=== PATIENT | male | born 1980 | race Caucasian/White ===

== ENCOUNTER 2016-08-30 12:55 | Emergency (ER) | payer SELFPAY ==
[~2016-08-30] VITALS: Ht 172.7 cm; Wt 85.0 kg
[2016-08-30 13:00] VITALS: Ht 172.7 cm; Wt 85.0 kg
[2016-08-30] MEDS ORDERED: SODIUM CHLORIDE 0.9% 1L BAG IV* STA (13:03)
[2016-08-30] MEDS ORDERED: ACETAMINOPHEN 325 MG TAB PO ONE (13:30)
[2016-08-30 13:35] LABS: ADD SCAN DIFF NO
[2016-08-30 13:45] LABS: BASOPHIL # 0.1 10^3/ul (0.0-0.1); BASOPHILS % 0.3 % (0.0-2.0); EOSINOPHILS % 0.2 % (0.0-7.0); HEMATOCRIT 44.4 % (42.0-52.0); HEMOGLOBIN 14.1 g/dl (14.0-18.0); LYMPHOCYTES # 1.4 10^3/ul (0.8-2.9); LYMPHOCYTES % 7.9 % (15.0-51.0); MEAN CORPUSCULAR HEMOGLOBIN 28.7 pg (29.0-33.0); MEAN CORPUSCULAR HGB CONC 31.8 g/dl (32.0-37.0); MEAN CORPUSCULAR VOLUME 90.4 fl (82.0-101.0); MEAN PLATELET VOLUME 10.6 fl (7.4-10.4); MONOCYTE # 1.1 10^3/ul (0.3-0.9); MONOCYTES % 6.1 % (0.0-11.0); NEUTROPHIL # 14.8 10^3/ul (1.6-7.5); NEUTROPHILS % 85.1 % (39.0-77.0); PLATELET COUNT 214 10^3/UL (140-415); RED BLOOD COUNT 4.91 10^6/ul (4.70-6.10); RED CELL DISTRIBUTION WIDTH 13.6 % (11.5-14.5); WHITE BLOOD COUNT 17.4 10^3/ul (4.8-10.8)
[2016-08-30 13:55] LABS: ALBUMIN 4.8 g/dl (3.3-4.9); CHLORIDE 103 mmol/L (97-110); SODIUM 137 mmol/L (135-144)
[2016-08-30 13:56] LABS: POTASSIUM 3.9 mmol/L (3.5-5.1)
[2016-08-30] MEDS ORDERED: VENL75TA2 PO (13:56)
[2016-08-30] MEDS ORDERED: BUPR1FIL3 SL (13:56)
[2016-08-30 13:57] LABS: CREATININE 0.89 mg/dl (0.61-1.24)
[2016-08-30] MEDS ORDERED: DIAZ10TA4 PO (13:57)
--- NOTE | 2016-08-30 13:57 | RADRPT ---
PROCEDURE: XR Chest. CLINICAL INDICATION: Sepsis TECHNIQUE: Chest AP portable. COMPARISON: No comparison available. FINDINGS: The mediastinal structures are unremarkable. The heart is normal in size and configuration. The pu lmonary vascularity is normal. The lung bernstein are unremarkable. No consolidation is identified. The pleural spaces are unremarkable. The axial skeleton is unremarkable. IMPRESSION: No active intrathoracic disease. RPTAT: [facility] .Temo Avila MD, MD Date Time Electronically viewed and signed by .Temo Avila MD, on 08/30/2016 13:57 .B/
[2016-08-30 13:58] LABS: ALANINE AMINOTRANSFERASE 37 IU/L (13-69); ALBUMIN/GLOBULIN RATIO 1.92; ALKALINE PHOSPHATASE 76 IU/L (42-121); ANION GAP 12 (8-16); ASPARTATE AMINO TRANSFERASE 34 IU/L (15-46); BILIRUBIN,INDIRECT 0.2 mg/dl (0-1.1); BILIRUBIN,TOTAL 0.2 mg/dl (0.2-1.3); BLOOD UREA NITROGEN 13 mg/dl (7-20); CALCIUM 8.6 mg/dl (8.4-10.2); CARBON DIOXIDE 26 mmol/L (21-31); GLUCOSE 178 mg/dl (70-220); TOTAL PROTEIN 7.3 g/dl (6.1-8.1)
[2016-08-30] MEDS ORDERED: OLAN10TA7 PO (13:58)
[2016-08-30 13:59] LABS: ACETAMINOPHEN < 10.0 ug/ml (10.0-30.0); ETHANOL < 10.0 mg/dl; SALICYLATE < 1.0 mg/dl (5.0-30.0)
[2016-08-30] MEDS ORDERED: CLON-379 PO (14:02)
[2016-08-30] MEDS ORDERED: GABA300C16 PO (14:03)
[2016-08-30] MEDS ORDERED: BUSP10TA2 PO (14:03)
[2016-08-30] MEDS ORDERED: CLIN-73 PO (14:04)
[2016-08-30 14:12] LABS: TROPONIN-I < 0.012 ng/ml (0.00-0.12)
--- NOTE | 2016-08-30 14:32 | ERD ---
ER Documentation Chief Complaint Date/Time DATE: 08/30/16 TIME: 14:30 Chief Complaint suspected heroine OD in a car parking lot hx of heroine use HPI Patient is a 35-year-old male with history of heroin abuse who presents with a heroin overdose. He was brought in by ambulance. He was given Narcan 2 mg IM by paramedics because he was not breathing. He was hypoxic and cyanotic. His girlfriend called 911 when she found him unconscious in the car. He said that he used heroin about 1 hour ago. His only complaint is that he "feels cold". He also had a sore throat which started yesterday. Upon review of old medical records this is the patient's first visit to the emergency department. ROS All systems reviewed and are negative except as per history of present illness. Medications Home Meds Active Scripts Clindamycin Hcl* (Clindamycin Hcl*) 300 Mg Capsule, 300 MG PO TID for 10 Days, CAP Prov:MARYCHUY WAHL MD 08/30/16 Reported Medications Buspirone Hcl* (Buspirone Hcl*) 10 Mg Tab, 15 MG PO BID, TAB 08/30/16 Gabapentin* (Gabapentin*) 300 Mg Capsule, 900 MG PO TID, #90 CAP 08/30/16 Clonidine Hcl* (Clonidine Hcl*) 0.1 Mg Tab, 0.1 MG PO TID Y for ELEVATED BLOOD PRESSURE, TAB 08/30/16 Olanzapine* (Zyprexa*) 10 Mg Tablet, 10 MG PO DAILY, #30 TAB 08/30/16 Diazepam* (Diazepam*) 10 Mg Tablet, 10 MG PO BID, TAB 08/30/16 Venlafaxine Hcl* (Effexor XR*) 75 Mg Tab.er.24, 75 MG PO DAILY, TAB.SA 08/30/16 Buprenorphine Hcl-Naloxone Hcl (Suboxone SL) 8-2 Mg Film, 1 FILM SL DAILY, FILM 08/30/16 Allergies Allergies: Uncoded Allergies: PENICILLIN (Allergy, Unknown, 08/30/16) PMhx/Soc Medical and Surgical Hx: pt denies Medical Hx, pt denies Surgical Hx History of Surgery: No Anesthesia Reaction: No Hx Neurological Disorder: No Hx Respiratory Disorders: No Hx Cardiac Disorders: No Hx Psychiatric Problems: No Hx Miscellaneous Medical Probl: No Hx Alcohol Use: No Hx Substance Use: Yes (HEROIN) Hx Tobacco Use: Yes Smoking Status: Current some day smoker FmHx Family History: No diabetes Physical Exam Vitals Vital Signs Date Time Temp Pulse Resp B/P Pulse Ox O2 Delivery O2 Flow Rate FiO2 08/30/16 13:00 100.7 124 20 187/103 96 Physical Exam Const: Moderate distress Head: Atraumatic Eyes: Normal Conjunctiva ENT: Erythematous tonsils bilaterally without signs of peritonsillar abscess or stridor over the neck Neck: Full range of motion..~ No meningismus. Resp: Clear to auscultation bilaterally Cardio: Tachycardic rate Abd: Soft, non tender, non distended. Normal bowel sounds Skin: No petechiae or rashes Back: No midline or flank tenderness Ext: No cyanosis, or edema Neur: Awake and alert Psych: Normal Mood and Affect Result Diagram: 08/30/16 1320 08/30/16 1320 Results 24 hrs Laboratory Tests Test 08/30/16 13:20 White Blood Count 17.410^3/ul Red Blood Count 4.9110^6/ul Hemoglobin 14.1g/dl Hematocrit 44.4% Mean Corpuscular Volume 90.4fl Mean Corpuscular Hemoglobin 28.7pg Mean Corpuscular Hemoglobin Concent 31.8g/dl Red Cell Distribution Width 13.6% Platelet Count 14463^3/UL Mean Platelet Volume 10.6fl Neutrophils % 85.1% Lymphocytes % 7.9% Monocytes % 6.1% Eosinophils % 0.2% Basophils % 0.3% Nucleated Red Blood Cells % 0.0/100WBC Neutrophils # 14.810^3/ul Lymphocytes # 1.410^3/ul Monocytes # 1.110^3/ul Eosinophils # 0.010^3/ul Basophils # 0.110^3/ul Nucleated Red Blood Cells # 0.010^3/ul Sodium Level 137mmol/L Potassium Level 3.9mmol/L Chloride Level 103mmol/L Carbon Dioxide Level 26mmol/L Anion Gap 12 Blood Urea Nitrogen 13mg/dl Creatinine 0.89mg/dl Glucose Level 178mg/dl Lactic Acid Level 3.0mmol/L Calcium Level 8.6mg/dl Total Bilirubin 0.2mg/dl Direct Bilirubin 0.00mg/dl Indirect Bilirubin 0.2mg/dl Aspartate Amino Transf (AST/SGOT) 34IU/L Alanine Aminotransferase (ALT/SGPT) 37IU/L Alkaline Phosphatase 76IU/L Troponin I < 0.012ng/ml Total Protein 7.3g/dl Albumin 4.8g/dl Globulin 2.50g/dl Albumin/Globulin Ratio 1.92 Salicylates Level < 1.0mg/dl Acetaminophen Level < 10.0ug/ml Ethyl Alcohol Level < 10.0mg/dl Current Medications Medications (Trade) Dose Ordered Sig/Elmer Route PRN Reason Start Time Stop Time Status Last Admin Dose Admin Sodium Chloride (NS) 2,640 ml BOLUS OVER 2 HOURS STAT IV* 08/30/16 13:03 08/30/16 13:04 DC 08/30/16 13:44 Acetaminophen (Tylenol Tab) 650 mg ONCE ONCE PO 08/30/16 13:30 08/30/16 13:31 DC 08/30/16 13:15 Procedures/MDM Chest x-ray negative for pneumonia or pneumothorax per radiology. Admit MDM: Patient's infectious symptoms have not stabilized and the patient is at risk of rapid decompensation. The patient will be admitted for careful hydration, antibiotic therapy, and infectious source control. Severe Sepsis criteria: Infectious source: Pharyngitis End organ damage indicated by: Lactate greater than 2 Sepsis Management: Time of recognition of sepsis: 13:20 Within 3 hours of recognition: Blood cultures x 2 before broad-spectrum antibiotics: Yes 30 ml/kg NS bolus Completed Initial lactate 3.0 Repeat lactate patient refused Time of recognition of septic shock: No septic shock Septic Shock Assessment: Any lactic acid > 4.0 No Persistent hypotension (SBP < 90 or 40 mmHg drop, MAP < 65) despite 30 mL/kg IV fluid bolus No Volume Re-assessment for Septic Shock (post 30 ml/kg bolus): No septic shock at this time Persistent Hypotension Treatment: Comfort care No Central line Not Required Vasopressor started Not required I considered further perfusion assessment with CVP measurement, SCVO2, bedside ultrasound volume assessment, passive leg raise, trial of further fluid bolus. And proceeded with 30 mm kilogram fluid bolus of normal saline and Tylenol. The patient refused antibiotics and repeat lactic acid. I also wanted to admit him to the hospital but he refused and pulled out his own IV and wants to leave AGAINST MEDICAL ADVICE. The patient was instructed to take clindamycin as he has an allergy to penicillin and I believe he has a pharyngitis. The patient could return for any worsening symptoms but please note that he is leaving AGAINST MEDICAL ADVICE. Critical Care: Critical care time 35 minutes excluding all billable procedures Emergent fluid management while maintaining close respiratory support. Provision of immediate and broad-spectrum antibiotic therapy. Simultaneous assessment for possible sources in order to direct targeted therapy. Consideration for invasive and chemical support to prevent cardiopulmonary collapse. Departure Diagnosis: Primary Impression: Sepsis Sepsis type: sepsis due to unspecified organism Qualified Code: A41.9 - Sepsis, due to unspecified organism Additional Impressions: Fever Fever type: unspecified Qualified Code: R50.9 - Fever, unspecified fever cause Accidental overdose Encounter type: initial encounter Qualified Code: T50.901A - Accidental overdose, initial encounter Pharyngitis Pharyngitis/tonsillitis etiology: unspecified etiology Qualified Code: J02.9 - Pharyngitis, unspecified etiology Condition: Fair Patient Instructions: Overdose, Accidental (Adult), Pharyngitis, Strep ( Presumed) Referrals: [facility] YOU HAVE RECEIVED A MEDICAL SCREENING EXAM AND THE RESULTS INDICATE THAT YOU DO NOT HAVE A CONDITION THAT REQUIRES URGENT TREATMENT IN THE EMERGENCY DEPARTMENT. FURTHER EVALUATION AND TREATMENT OF YOUR CONDITION CAN WAIT UNTIL YOU ARE SEEN IN YOUR DOCTORS OFFICE WITHIN THE NEXT 1-2 DAYS. IT IS YOUR RESPONSIBILITY TO MAKE AN APPOINTMENT FOR FOLOW-UP CARE. IF YOU HAVE A PRIMARY DOCTOR --you should call your primary doctor and schedule an appointment IF YOU DO NOT HAVE A PRIMARY DOCTOR YOU CAN CALL OUR PHYSICIAN REFERRAL HOTLINE AT IF YOU CAN NOT AFFORD TO SEE A PHYSICIAN YOU CAN CHOSE FROM THE FOLLOWING [facility] CL[facility]ICS [facility] [address] [facility]. [facility] [address] [facility] [address] [facility] [address] [facility]. [facility] [address] [facility] [facility]. [address] Additional Instructions: Call your primary care doctor TOMORROW for an appointment during the next 1-2 days.See the doctor sooner or return here if your condition worsens before your appointment time. MARYCHUY WAHL MD August 30, 2016 14:32
== END 2016-08-30 14:09 | disposition home or self-care (01) ==
LOC: E/R 12:55
DX: A41.9 Sepsis, unspecified organism (principal); R50.9 Fever, unspecified; J02.9 Acute pharyngitis, unspecified; F17.210 Nicotine dependence, cigarettes, uncomplicated; R06.02 Shortness of breath
CPT/HCPCS: 36415; 71010; 80053; 80306; 83605; 84484; 85025; 87040; 93005; 99291; J7030